=== PATIENT | female | born 2000 | race Caucasian/White ===

== ENCOUNTER 2020-07-17 14:12 | Emergency (ER) | payer SELFPAY ==
[~2020-07-17] VITALS: Ht 157.5 cm; Wt 80.7 kg
[2020-07-17 14:18] VITALS: BP 118/60
--- NOTE | 2020-07-17 14:24 | NUR ---
Patient ambulated to bed 5. RN evaluating patient at bedside.
--- NOTE | 2020-07-17 14:30 | NUR ---
19 YEAR OLD FEMALE COMPLAINS OF VAGINAL ODOR AND DISCHARGE X 1 MONTH. PT STATES THAT DISCHARGE IS WHITE IN COLOR. PT DENIES ANY CHANGES IN URINATION, OR PAIN. PT DENIES CP OR SOB. PT AOX4, BREATHING EVEN AND UNLABORED, SKIN WARM AND DRY. BED IN LOWEST POSITION, LOCKED, BED RAIL UPX1. PMH - MONO, HYPOTHYROID, ASTHMA, MENINGITIS ALLERGIES - NKA
[2020-07-17] MEDS ORDERED: AZITHROMYCIN 250 MG TAB PO ONE (15:05)
[2020-07-17] MEDS ORDERED: cefTRIAXone 250 MG in LIDOCAINE MPF 1% 0.9 ML IM ONE (15:05)
--- NOTE | 2020-07-17 15:18 | NUR ---
PT STATES SHE IS STILL UNABLE TO URINATE, ERMD MADE AWARE
[2020-07-17] MEDS ORDERED: cefTRIAXone 250 MG VIAL ONE (15:24)
[2020-07-17] MEDS ORDERED: LIDOCAINE MPF 1% 5 ML ONE (15:24)
--- NOTE | 2020-07-17 15:45 | NUR ---
PT REFUSED IM MEDICATION, ERMD MADE AWARE
--- NOTE | 2020-07-17 15:49 | NUR ---
Dr. Ulloa is evaluating the patient at bedside.
--- NOTE | 2020-07-17 15:50 | NUR ---
GWENDOLYN LOPEZ AND DORI MENARD AT BEDSIDE
--- NOTE | 2020-07-17 16:00 | NUR ---
Pelvic exam performed by Dr. Ulloa with female tree warden - myself, DORI Copeland at bedside for entire examination. Patient tolerated procedure well. Patient assisted to position of comfort after examination.
--- NOTE | 2020-07-17 16:00 | NUR ---
Educated pt on indication & benefits of antibiotic injection administration. Pt agreed to receive rocephin IM injection. ERMD aware.
[2020-07-17 16:46] VITALS: BP 118/60
--- NOTE | 2020-07-17 16:46 | NUR ---
Patient discharged with v/s stable. Written and verbal after care instructions given and explained. Patient alert, oriented and verbalized understanding of instructions. Ambulatory with steady gait. All questions addressed prior to discharge. ID band removed. Patient advised to follow up with PMD. Rx of FLAGYL given. Patient educated on indication of medication including possible reaction and side effects. Opportunity to ask questions provided and answered.
[2020-07-19 07:09] LABS: CHLAMYDIA TRACHOMATIS AMP DNA Negative (Negative)
== END 2020-07-17 16:46 | disposition home or self-care (01) ==
LOC: MED 14:12
DX: N89.8 Other specified noninflammatory disorders of vagina (principal); J45.909 Unspecified asthma, uncomplicated; E03.9 Hypothyroidism, unspecified; G03.9 Meningitis, unspecified
CPT/HCPCS: 36415; 81002; 81025; 87491; 99283; J0696; J2001

== ENCOUNTER 2022-04-07 11:23 | Emergency (ER) | payer OTHER ==
[~2022-04-07] VITALS: Ht 157.5 cm; Wt 78.0 kg
[2022-04-07 11:29] VITALS: BP 118/55
--- NOTE | 2022-04-07 11:30 | NUR ---
PT BROUGHT TO BED 7 VIA [facility]
--- NOTE | 2022-04-07 11:37 | NUR ---
21 Y/O FEMALE BIBA FROM [facility] C/O DIZZINESS AFTER SMELLING THEMSELVES. STATED THAT SHE HASNT HAD A SHOWER X3 DAYS. DENIES TAKING ANY MEDICATON, DENIES ANY PAIN AT THIS TIME. INDU PMH: ASTHMA
--- NOTE | 2022-04-07 11:38 | NUR ---
PT IN GOWN UP TO BATHROOM GAIT STEADY
--- NOTE | 2022-04-07 11:53 | NUR ---
PT OFFERED 2 CUPS OF WATER
--- NOTE | 2022-04-07 12:05 | NUR ---
ER PA AT BEDSIDE
--- NOTE | 2022-04-07 12:20 | NUR ---
FOOD PROVIDED TO PATIENT
--- NOTE | 2022-04-07 12:57 | NUR ---
Patient discharged with v/s stable. Written and verbal after care instructions given and explained. Patient verbalized understanding. Ambulatory with steady gait. All questions addressed prior to discharge. Advised to follow up with PMD.
--- NOTE | 2022-04-07 12:58 | NUR ---
The patient's care was reviewed and supervised by Dorys Schmitz RN.
== END 2022-04-07 12:57 | disposition home or self-care (01) ==
LOC: MED 11:23
DX: R42 Dizziness and giddiness (principal); J45.909 Unspecified asthma, uncomplicated; E03.9 Hypothyroidism, unspecified; F17.210 Nicotine dependence, cigarettes, uncomplicated
CPT/HCPCS: 99283